=== PATIENT | female | born 1945 | race Caucasian/White ===

== ENCOUNTER → 2016-05-15 | Outpatient (CLI) | payer MEDICARE, OTHER | LOC: GMAJ 15:46 | PROVIDERS: ATTEND Family Medicine | DX: E03.9 Hypothyroidism, unspecified (principal) ==

== ENCOUNTER 2016-11-28 18:14 | Observation (INO) | payer MEDICARE, OTHER ==
--- NOTE | 2016-11-28 18:16 | HP ---
SUPERVISING PHYSICIAN: Alejandro Fitzpatrick MD CHIEF COMPLAINT: CHEST PAIN HISTORY OF PRESENT ILLNESS: Ms. Pelayo is a 71 year-old female patient that presented to the night clinic at [facility] and was seen by Dr. Fitzpatrick with complaints of chest pain. She has a history of a previous myocardial infarction in 2015 as well as being diabetic with hypertension and a previous pulmonary embolism again in 2014. 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 Dr. Fitzpatrick requested the patient be placed in observation overnight for continuation of workup to further rule out an ischemic cardiac event. She was placed in observation in stable condition. PAST MEDICAL HISTORY: 1. Seasonal allergies. 2. Asthma. 3. Type 2 diabetes. 4. Hypertension. 5. Hypothyroidism. 6. Myocardial infarction in 2014. 7. Pulmonary embolism in 2015 secondary to a shoulder fracture and cast. PAST SURGICAL HISTORY: 1. Tonsillectomy at age 24. 2. Bilateral tubal ligation in 1975. 3. Heart catheterization in 2014. CURRENT MEDICATIONS: 1. Gabapentin 300 mg. twice a day. 2. Lipitor 20 mg daily. 3. Victoza 60 mg at bedtime. 4. Metformin Extended Release 500 mg b.i.d. 5. Losartan potassium 100 mg qPM. 6. Synthroid 150 mcg qAM. 7. Glimepiride 4 mg twice a day. 8. Lasix 20 mg daily. 9. Plavix 75 mg daily. 10. Coreg 6.25 mg qPM. 11. Low-dose Aspirin 81 mg daily. 12. Pantoprazole 40 mg daily. ALLERGIES: CIPROFLOXACIN, BYETTA, RAMIPRIL, JANUVIA FAMILY HISTORY: Father secondary to lung cancer. Mother had history of hypertension. SOCIAL HISTORY: Patient lives in [place]. She is single, she has no children. 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 She has never smoked and has never drank alcohol. REVIEW OF SYSTEMS: CONSTITUTIONAL: Denies any fever, chills, fatigue, or weight loss. CARDIOVASCULAR: As noted in the history of present illness. RESPIRATORY; Denies any cough or dyspnea. GASTROINTESTINAL: Negative for any diarrhea, constipation, nausea or vomiting. GENITOURINARY: Denies any dysuria, hematuria or any other urinary symptoms. NEUROLOGICAL: Denies any neuro deficits. Notes she has had a mild headache since early in the afternoon which is actually starting to ease up on admission. PHYSICAL EXAMINATION: VITAL SIGNS: Temperature 97.9, pulse 64, blood pressure 136/84. Saturation 96 % on room air at rest with respirations of 20. Admission weight 101.8 kg. GENERAL: The patient appears to be well hydrated, well-nourished and in no acute distress at time of admission to the medical/surgical floor. She is alert and oriented x 3. HEENT: Tympanic membranes are clear bilaterally. Pharynx is pink and moist without any lesions. NECK: Supple, non-tender with full range of motion. No jugular venous distention noted. CHEST: Lungs clear to auscultation bilaterally without any rhonchi, rales, or wheezes. CARDIOVASCULAR: Regular rate and rhythm without appreciable murmurs, rubs, or gallops. ABDOMEN: Obese, soft, non-tender. Positive bowel sounds. EXTREMITIES: No cyanosis, clubbing, or edema. NEUROLOGIC: She is alert and oriented x 3 with no motor or sensory deficits noted. Her facial features were symmetrical. Extraocular movements were within normal limits. LABORATORY: CBC showed to be within normal limits. Coagulation studies showed a slightly elevated PT of 13. INR was 1.1 with PTT of 28.9, D-dimer less than 200. Chemistries showed a mild hypokalemia with a potassium of 3.5. BUN 14, creatinine 0.6, glucose 96, bilirubin was only slightly elevated at 1.3. Liver functions all showed to be within normal limits. Cardiac enzymes showed a normal CPK at 130 with normal troponin less than 0.02. BNP was 54.4, TSH 0.97. Urinalysis showed just a trace of blood on dipstick, otherwise within normal limits. RADIOLOGY: Chest x-ray single view on admission showed no acute pulmonary or parenchymal process seen in any field per radiology interpretation. ASSESSMENT: 1. Chest wall discomfort with a past history of myocardial infarction in 2015 needing to rule out acute ischemic event, possibly related to a mild anxiety attack. 2. History of hypertension. 3. History of previous myocardial infarction in 2015. 4. History of pulmonary embolism in 2015 on Plavix, having been on Eliquis prior and followed by Dr. Moon. 5. Type 2 diabetes mellitus. 6. Hypothyroidism on supplementation with normal TSH. 7. History of asthma. 8. Seasonal allergies. 9. Mild dehydration likely secondary to loop diuretics. 10. Mild electrolyte imbalance with a hypokalemia. PLAN: The patient is placed in observation tonight and started on cardiac protocol to rule out acute coronary event with cardiac labs every 6 hours with EKGs. She will be started on DVT prophylaxis as per protocol. Her home medications will be resumed as they are updated. Will anticipate length of stay to be 1 to 2 days with anticipation of discharge tomorrow should she show to be clinically stable and after reevaluation clinically, will repeat laboratory studies and followup on cardiac labs and EKGs. Once discharged, she will need close clinical followup with Dr. Anderson, her primary care physician, as well as followup with her bag valver, Dr. Moon. Will plan to start her on some IV fluids with potassium replacement to address the hypokalemia and mild dehydration. She will continue to be monitored and treated appropriately. #[id number] [facility]
[2016-11-28] MEDS ORDERED: DEXTROSE 50% 25 GM/50 ML SYG IV PRN (18:18)
[2016-11-28] MEDS ORDERED: ASPIRIN (CHEWABLE) 81 MG TAB PO ONE (18:18)
[2016-11-28] MEDS ORDERED: SODIUM CHLORIDE 0.9% (FLUSH) 10 ML SYG IV PRN (18:18)
[2016-11-28] MEDS ORDERED: MORPHINE SULFATE INJ 10 MG/ML VIAL IV PRN (18:18)
[2016-11-28] MEDS ORDERED: NITROGLYCERIN 0.4 MG 25 EA TAB SL PRN (18:18)
[2016-11-28] MEDS ORDERED: ACETAMINOPHEN 325 MG TAB PO PRN (18:18)
[2016-11-28] MEDS ORDERED: GLUCAGON INJ 1 MG VIAL SUBCU PRN (18:18)
[2016-11-28] MEDS ORDERED: IV SET AND CAP CHANGE INJ INJ SCH (18:30)
[2016-11-28] MEDS ORDERED: ASPIRIN TABLET 325 MG TAB ONE (18:52)
--- NOTE | 2016-11-28 18:57 | RAD ---
PROCEDURE: XR CHEST 1 VIEW HISTORY: chest pain COMPARISON: None TECHNIQUE: Single projection of the chest was done. FINDINGS: The lung landry are well inflated . There are no discrete airspace infiltrates, pneumothoraces or pleural effusions. The pulmonary vascularity is normal. The cardiomediastinal silhouette is unremarkable for patient's age and sex. IMPRESSION: There is no acute pleural-parenchymal process seen in the imaged lung landry. Location of Interpretation: Teleradiology Electronically signed by: Сергей Richardson MD 11/28/2016 6:56 PM CDT Workstation: [id number]
[2016-11-28] MEDS: SODIUM CHLORIDE 0.9% (FLUSH) 10 ML SYG IV SCH (20:16)
[2016-11-28] MEDS: KCL 20MEQ/0.45% NS 1,000 ML IVS PRN (20:16)
[2016-11-28] MEDS ORDERED: GLIMEPIRIDE 4 MG PO SCH (21:00)
[2016-11-28] MEDS ORDERED: LIRAGLUTIDE 6 MG SC SCH (21:00)
[2016-11-28] MEDS: INSULIN LISPRO 100 UNITS/ML PEN SUBCU SCH (21:23)
[2016-11-28] MEDS ORDERED: LOSARTAN POTASSIUM 100 MG PO SCH (22:00)
[2016-11-28] MEDS ORDERED: CARVEDILOL 3.125 MG TAB PO SCH (22:00)
[2016-11-28] MEDS ORDERED: NON-FORMULARY MEDICATION 1 EA MIS (Metformin Hcl [Metformin Hcl Er] 500 MG) PO SCH (22:00)
[2016-11-28] MEDS ORDERED: CLOPIDOGREL 75 MG TAB PO SCH (22:30)
[2016-11-28] MEDS ORDERED: metFORMIN XR 500 MG TAB.ER.24 PO ONE (22:40)
[2016-11-28] MEDS ORDERED: LOSARTAN POTASSIUM 100 MG TAB ONE (22:40)
[2016-11-28] MEDS ORDERED: GLIMEPIRIDE 2 MG TAB ONE (22:40)
[2016-11-29] MEDS: INSULIN LISPRO 100 UNITS/ML PEN SUBCU SCH (07:22)
[2016-11-29] MEDS ORDERED: GLIMEPIRIDE 2 MG TAB ONE (08:26)
[2016-11-29] MEDS ORDERED: metFORMIN HCL 500 MG TAB ONE (08:27)
[2016-11-29] MEDS ORDERED: FUROSEMIDE 40 MG TAB ONE (08:27)
[2016-11-29] MEDS ORDERED: LEVOTHYROXINE SODIUM 0.075 MG TAB ONE (08:27)
[2016-11-29] MEDS ORDERED: CLOPIDOGREL 75 MG TAB ONE (08:27)
[2016-11-29] MEDS: KCL 20MEQ/0.45% NS 1,000 ML IVS PRN (08:36)
[2016-11-29] MEDS: SODIUM CHLORIDE 0.9% (FLUSH) 10 ML SYG IV SCH (08:40)
[2016-11-29] MEDS ORDERED: ASPIRIN TABLET 325 MG TAB PO SCH (09:00)
[2016-11-29] MEDS ORDERED: LEVOTHYROXINE SODIUM 0.075 MG TAB PO SCH (09:00)
[2016-11-29] MEDS ORDERED: CLOPIDOGREL 75 MG TAB PO SCH (09:00)
[2016-11-29] MEDS ORDERED: metFORMIN XR 500 MG TAB.ER.24 PO SCH (09:00)
[2016-11-29] MEDS ORDERED: GLIMEPIRIDE 2 MG TAB PO SCH (09:00)
[2016-11-29] MEDS ORDERED: ATORVASTATIN 20 MG TAB PO SCH (09:00)
[2016-11-29] MEDS ORDERED: FUROSEMIDE 40 MG TAB PO SCH (09:00)
[2016-11-29] MEDS ORDERED: PANTOPRAZOLE SODIUM TAB 40 MG PO SCH (09:00)
[2016-11-29] MEDS ORDERED: ASPIRIN EC 81 MG TAB PO SCH (09:00)
[2016-11-29 09:51] VITALS: BP 147/80; TEMP 98.9; O2SAT 96
[2016-11-29] MEDS ORDERED: LOSARTAN POTASSIUM 100 MG TAB PO SCH (18:00)
--- NOTE | 2016-11-29 18:59 | DS ---
SUPERVISING PHYSICIAN: Alejandro Fitzpatrick M.D. DISCHARGE DIAGNOSIS: 1. Chest wall discomfort with no evidence of acute ischemic cardiac event with cardiac enzymes being negative and EKG unchanged likely secondary to acute anxiety event with symptoms having resolved prior to discharge without any additional intervention. 2. History of hypertension, stable. 3. History of previous myocardial infarction in 2015. 4. History of pulmonary embolism in 2015 on Plavix, having been on Eliquis a year prior and being followed by Dr. Moon. 5. Type 2 diabetes mellitus, stable. 6. Hypothyroidism on supplementation with normal TSH. 7. History of asthma. 8. Seasonal allergies. 9. Mild dehydration likely secondary to loop diuretics showing improvement after IV therapy. 10. Mild electrolyte imbalance with a hypokalemia secondary to Lasix, improved after IV therapy. HISTORY OF PRESENT ILLNESS: Ms. Pelayo is a 71 year-old female patient that presented initially on 11/28/16 to the after hours clinic at [facility] and was seen by Dr. Fitzpatrick. She was complaining of chest wall type pain more in the back radiating to her right side with some right arm discomfort. She does have a history of a previous myocardial infarction in 2014 as well as being diabetic with hypertension and a previous pulmonary embolism again in 2014. EKG in the clinic showed no acute changes, no ST or T-wave abnormalities , but given the patient's history and symptomatology, Dr. Fitzpatrick requested the patient be placed in Observation to further rule out any acute cardiac event. 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 Dr. Fitzpatrick requested the patient be placed in observation to further rule out an acute cardiac event. She had also noted that she had had a stressful day at work and had a minor argument with her petroleum inspector supervisor after which time she started having chest tightness that started in her back and radiated to her left and right side, and also developed a mild headache. She was placed in Observation in stable condition. LABORATORY: CBC on admission was within normal limits as well as discharge. White count was 7.5, hemoglobin 13.4, hematocrit 39.8, platelet count 174,000. Differential was within normal limits. Coagulation studies show just a slightly elevated PT of 13 with an INR of 1.15 with PTT of 28.9 and D-dimer less than 200. Chemistries on admission showed lot potassium 3.5, BUN 14, creatinine 0.62. Bilirubin was only slightly elevated at 1.3. Liver functions all showed to be within normal limits. BNP was normal at 54. Initial troponin was less than 0.02 and repeat times three remained less than 0.02. At discharge , her potassium had normalized. Total bilirubin had returned to near normal at 1.1. Blood sugars ranged from 126 to 135. Lipid panel showed cholesterol 65 with LDL 25 and HDL 27. TSH was normal at 0.97. Urinalysis showed just a trace of intact blood, otherwise within normal limits. RADIOLOGY: Chest x-ray on admission single view per radiology interpretation showed no acute pleural or parenchymal processes seen within the imaged lung landry. HOSPITAL COURSE: Ms. Pelayo was admitted from the walk-in clinic as noted in History of Present Illness on 11/28/16 to rule out acute ischemic cardiac event. When she was placed in Observation, she was essentially without any symptoms, just a mild headache. She was started on some IV fluids, telemetry and observed overnight with repeat cardiac enzymes. She had no recurrence of pain. He headache had improved. She had no pain in regards to symptoms as prior to admission. She had no recurrence of any chest pain nor did she have any abnormal rhythms noted on telemetry. It was felt that she was clinically stable enough to be discharge to have close clinical followup in the outpatient setting. PLAN: Ms. Pelayo was discharged on 11/29/16 to have close clinical followup with Dr. Anderson as scheduled on 12/12/16 at 10:45 AM. She can resume her home medications as prior to admission and return to the hospital should she have any concerning symptoms. She will need to have a followup with Dr. Moon, her assembler 1st shift, for a stress test in the near future. Diet at discharge was diabetic diet as tolerated. Activity is to increase as tolerated. Condition on discharge was stable. No new medications were added to her medication regimen. [facility][id number] [facility]
== END 2016-11-29 09:41 | disposition home or self-care (01) ==
LOC: MS 18:14
PROVIDERS: ADMIT Nurse Practitioner Family; ATTEND Nurse Practitioner Family
DX: R07.89 Other chest pain (principal); F41.9 Anxiety disorder, unspecified; I10 Essential (primary) hypertension; I25.2 Old myocardial infarction; E11.9 Type 2 diabetes mellitus without complications; E86.0 Dehydration; E87.6 Hypokalemia; E03.9 Hypothyroidism, unspecified; J45.909 Unspecified asthma, uncomplicated; Z86.711 Personal history of pulmonary embolism; Z79.02 Long term (current) use of antithrombotics/antiplatelets; Z79.84 Long term (current) use of oral hypoglycemic drugs; Z79.82 Long term (current) use of aspirin; Z79.899 Other long term (current) drug therapy; Z88.1 Allergy status to other antibiotic agents; Z88.8 Allergy status to other drugs, medicaments and biological substances; Z82.49 Family history of ischemic heart disease and other diseases of the circulatory system; Z80.1 Family history of malignant neoplasm of trachea, bronchus and lung
CPT/HCPCS: 36415 ×7; 36416 ×5; 71010; 80053 ×2; 80061; 81001; 82550 ×3; 82553 ×3; 82948 ×2; 83036; 83880; 84443; 84484 ×3; 85025 ×2; 85379; 85610; 85730; 93005 ×2; 94760 ×2; 96365; 96372; 96376; G0378; J3480 ×2

== ENCOUNTER → 2017-03-06 | Outpatient (CLI) | payer MEDICARE, OTHER ==
--- NOTE | 2017-03-07 15:37 | MAM ---
EXAM DESCRIPTION: 3D Screening BILATERAL : Digital Mammography. CLINICAL HISTORY: 71 years Female SCREENING . No complaints. No family history of breast cancer. Postmenopausal. Has taken HRT 5 or more years ago.. COMPARISON: 2-D digital screening bilateral study 02/26/2016. Report from prior examination also reviewed. TECHNIQUE: Bilateral CC and MLO projection full-field images, 3-D tomosynthesis digital mammographic technique. Also bilateral synthesized CC/ MLO full-field images. CAD not utilized. FINDINGS: The breast parenchymal density pattern is: Scattered areas of fibroglandular density. No skin thickening or nipple retraction bilateral solitary microcalcifications. No focal, stellate mass or density, focal asymmetry , and no suspicious microcalcifications bilaterally. Stable mammograms compared to prior study, taking into account differences in mammographic technique IMPRESSION: BI-RADS CATEGORY: 2 - BENIGN FINDINGS. FOLLOW UP: Routine digital bilateral screening, one year interval from February 2017. Written communication explaining the IMPRESSION and follow-up, will be mailed to the patient and referring health care provider. According to the [employer], yearly mammograms are recommended starting at age 40 and continuing as long as a woman is in good health. Any breast change noted on a breast self-exam should be reported promptly to the patient's healthcare provider. Breast MRI is recommended for women with an approximately 20-25% or greater lifetime risk of breast cancer, including women with a strong family history of breast or ovarian cancer and women who have been treated for Hodgkin's disease. A negative mammographic report should not delay tissue diagnosis in patients with significant clinical history or physical findings. Extremely dense breast tissue limits the sensitivity of digital mammography. Electronically signed by: Rosales Campuzano MD 03/07/2017 3:36 PM [employer]
== END | disposition home or self-care (01) ==
LOC: MAMMO 09:29
PROVIDERS: ATTEND Family Medicine
DX: Z12.31 Encounter for screening mammogram for malignant neoplasm of breast (principal)
CPT/HCPCS: 77063; G0202

== ENCOUNTER → 2017-03-31 | Outpatient (CLI) | payer MEDICARE, OTHER | END | disposition home or self-care (01) | LOC: GMAJ 15:27 | PROVIDERS: ATTEND Family Medicine | DX: E03.9 Hypothyroidism, unspecified (principal) ==

== ENCOUNTER 2017-04-17 19:28 | Emergency (ER) | payer MEDICARE, OTHER ==
[2017-04-17] MEDS ORDERED: NITROGLYCERIN 0.4 MG 25 EA TAB SL ONE (19:49)
[2017-04-17] MEDS ORDERED: SODIUM CHLORIDE 0.9% (FLUSH) 10 ML SYG IV PRN (19:49)
[2017-04-17] MEDS ORDERED: ASPIRIN TABLET 325 MG TAB PO ONE (19:49)
--- NOTE | 2017-04-17 20:22 | RAD ---
PROCEDURE: XR CHEST 1 VIEW HISTORY: chest discomfort COMPARISON: 11/28/2016 TECHNIQUE: Single projection of the chest was done. FINDINGS: The lung landry are well inflated . There are no discrete airspace infiltrates, pneumothoraces or pleural effusions. The pulmonary vascularity is normal. The cardiomediastinal silhouette is unremarkable for patient's age and sex. IMPRESSION: There is no acute pleural-parenchymal process seen in the imaged lung landry. 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
--- NOTE | 2017-04-17 21:21 | ED.PDOC ---
History of Present Illness - General Chief Complaint: Chest Pain/MT Stated Complaint: chest pain Time Seen by Provider: 04/17/17 21:17 Source: patient, RN notes reviewed, Vital Signs reviewed Exam Limitations: no limitations Additional Information: Pt reports she has been having pain x3 days. Pain was gone yesterday and started having pain again today this morning. Pt reports numbness and tingling felt in her neck, throughout her back and shoulders (mostly left sided). Pt has hx of MT 2-3 years ago and she wanted to be checked out for possibility of MT. - History of Present Illness Timing/Duration: getting worse - over past 3 days Severity: moderate Improving Factors: rest Worsening Factors: movement Associated Symptoms: denies symptoms Allergies/Adverse Reactions: Allergies Ciprofloxacin [From Cipro] Allergy (Verified 02/12/16 21:41) Exenatide [From Byetta] Allergy (Verified 02/09/15 02:52) Phenol [From Byetta] Allergy (Verified 02/09/15 02:52) Ramipril Allergy (Verified 02/09/15 02:52) Sitagliptin [From Januvia] Allergy (Verified 02/09/15 02:52) Home Medications: Ambulatory Orders Glimepiride 4 mg PO BID 12/15/13 Levothyroxine Sodium [Synthroid] 150 mcg PO QAM 12/15/13 Losartan Potassium 100 mg PO QPM 12/15/13 Metformin HCl [Metformin HCl ER] 500 mg PO BID 12/15/13 Aspirin [Aspirin Adult Low Dose] 81 mg PO DAILY 02/12/16 Calcium & Magnesium + Zin 334-134-5 mg DAILY 02/12/16 Carvedilol [Coreg] 6.25 mg PO QPM 02/12/16 Furosemide [Lasix] 20 mg PO QAM 02/12/16 Pantoprazole Sodium 40 mg PO QAM 02/12/16 Atorvastatin Calcium [Lipitor] 20 mg PO DAILY 11/28/16 Clopidogrel Bisulfate [Plavix] 75 mg PO DAILY 11/28/16 Gabapentin 300 mg PO BID 11/28/16 Liraglutide [Victoza] 6 mg SC BEDTIME 11/28/16 Review of Systems - Review of Systems Constitutional: States: no symptoms reported EENTM: States: no symptoms reported Respiratory: States: no symptoms reported Cardiology: States: see HPI Gastrointestinal/Abdominal: States: no symptoms reported Genitourinary: States: no symptoms reported Musculoskeletal: States: see HPI, back pain Skin: States: no symptoms reported Neurological: States: no symptoms reported Endocrine: States: no symptoms reported Hematologic/Lymphatic: States: no symptoms reported Past Medical History (General) - Patient Medical History Hx Seizures: No Hx Stroke: No Hx Asthma: Yes Hx of COPD: No Hx Cardiac Disorders: Yes - MT Hx Congestive Heart Failure: No Hx Pacemaker: No Hx Hypertension: Yes Hx Diabetes: Yes - Diet controlled Hx Renal Disease: No Hx MRSA: No Surgical History: tonsillectomy, other - Vaccination History Hx Tetanus, Diphtheria Vaccination: Yes Hx Influenza Vaccination: Yes Hx Pneumococcal Vaccination: Yes - *had a reaction - Social History Hx Tobacco Use: No Hx Alcohol Use: No Hx Substance Use: No Hx Physical Abuse: No Hx Emotional Abuse: No - Female History Patient : No Family Medical History - Family History Mother Family History: Unknown Living Status: Physical Exam - Physical Exam General Appearance: Alert, Comfortable, No apparent distress, Well Developed, Well Groomed, Well Hydrated, Well Nourished Eye Exam: bilateral normal Ears, Nose, Throat: hearing grossly normal, normal ENT inspection, normal pharynx Neck: non-tender, full range of motion, supple Respiratory: chest non-tender, lungs clear, normal breath sounds, no respiratory distress, no accessory muscle use Cardiovascular/Chest: normal peripheral pulses, regular rate, rhythm, no edema, no murmur Gastrointestinal/Abdominal: non tender, soft Back Exam: muscle spasm - Left upper back Extremity: normal range of motion - except some pain with movement of left upper extremity, normal inspection, normal capillary refill Neurologic: c developer II-XII nml as tested, no motor/sensory deficits, alert, normal mood/affect, oriented x 3 Skin Exam: normal color Lymphatic: no adenopathy Progress - Progress Progress: 04/18/17 02:01 Patient with normal cardiopulmonary work-up. Suspect symptoms are mostly MSK in origin given association with increased movement/activity. - Results/Orders Results/Orders: Chest X-Ray: FINDINGS: The lung landry are well inflated . There are no discrete airspace infiltrates, pneumothoraces or pleural effusions. The pulmonary vascularity is normal. The cardiomediastinal silhouette is unremarkable for patient's age and sex. IMPRESSION: There is no acute pleural- parenchymal process seen in the imaged lung landry. EKG: NSR 68 bpm, no S-T elevation 04/17/17 19:49 IV Care:Saline Lock per Protoc QSHIFT Telemetry .ONCE Sodium Chloride 0.9% (Flush) [Saline Flush Syringe] 10 ml IV PRN PRN Pulse Ox Stat 04/17/17 19:50 EKG Assessment ONCE Pulse Oximetry Assessment DAILY Laboratory Results - last 24 hr 04/17/17 19:55 WBC 9.7 RBC 4.99 Hgb 15.1 Hct 44.1 MCV 88.4 MCH 30.2 MCHC 34.2 RDW 13.6 Plt Count 207 MPV 10.0 Absolute Neuts (auto) 6.40 Absolute Lymphs (auto) 2.30 Absolute Monos (auto) 0.60 Absolute Eos (auto) 0.30 Absolute Basos (auto) 0.10 Neutrophils % 65.9 Lymphocytes % 24.1 Monocytes % 5.8 Eosinophils % 2.9 Basophils % 1.3 PT 11.9 INR 1.050 PTT (SP) 28.2 Sodium 138 Potassium 3.5 L Chloride 101 Carbon Dioxide 28 Anion Gap 12.5 BUN 14 Creatinine 0.45 L BUN/Creatinine Ratio 31.1 H Random Glucose 91 Serum Osmolality 275.7 Calcium 9.6 Magnesium 1.8 Creatine Kinase 150 H CK-MB (CK-2) 3.9 CK-MB (CK-2) % 2.60 Troponin I < 0.02 B-Natriuretic Peptide 83.6 04/17/17 04/17/17 19:49 19:51 Temperature 97.9 F Pulse Rate 66 69 Pulse Rate [ 66 left] Respiratory 18 Rate Blood Pressure 150/81 [left] O2 Sat by Pulse 97 Oximetry - EKG/XRAY/CT EKG: Sinus, no ST T wave changes Departure - Departure Clinical Impression: Back pain Qualifiers: Back pain location: thoracic back pain Chronicity: acute Back pain laterality: left Qualified Code(s): M54.6 - Pain in thoracic spine Time of Disposition: 21:30 Disposition: Discharge to Home or Self Care Condition: Fair Departure Forms: ED Discharge - Pt. Copy, Patient Portal Self Enrollment Instructions: Muscle Strain Referrals: Roque Anderson MD [Primary Care Provider] - 1-5 Days Home Medications: Ambulatory Orders Glimepiride 4 mg PO BID 12/15/13 Levothyroxine Sodium [Synthroid] 150 mcg PO QAM 12/15/13 Losartan Potassium 100 mg PO QPM 12/15/13 Metformin HCl [Metformin HCl ER] 500 mg PO BID 12/15/13 Aspirin [Aspirin Adult Low Dose] 81 mg PO DAILY 02/12/16 Calcium & Magnesium + Zin 334-134-5 mg DAILY 02/12/16 Carvedilol [Coreg] 6.25 mg PO QPM 02/12/16 Furosemide [Lasix] 20 mg PO QAM 02/12/16 Pantoprazole Sodium 40 mg PO QAM 02/12/16 Atorvastatin Calcium [Lipitor] 20 mg PO DAILY 11/28/16 Clopidogrel Bisulfate [Plavix] 75 mg PO DAILY 11/28/16 Gabapentin 300 mg PO BID 11/28/16 Liraglutide [Victoza] 6 mg SC BEDTIME 11/28/16 Additional Instructions: Use tylenol over the counter for pain as well as heat and massage. Return to ER if condition worsens. Follow-up with Primary Care Provider if symptoms persist in 3 to 5 days.
[2017-04-17 21:53] VITALS: BP 141/64; TEMP 98; O2SAT 95
== END 2017-04-17 21:53 | disposition home or self-care (01) ==
LOC: ER 19:28
DX: M54.6 Pain in thoracic spine (principal); I25.2 Old myocardial infarction; E11.9 Type 2 diabetes mellitus without complications; I10 Essential (primary) hypertension; J45.909 Unspecified asthma, uncomplicated; Z79.899 Other long term (current) drug therapy; Z79.82 Long term (current) use of aspirin; Z88.1 Allergy status to other antibiotic agents; Z88.8 Allergy status to other drugs, medicaments and biological substances

== ENCOUNTER 2017-04-26 09:31 | Emergency (ER) | payer MEDICARE, OTHER ==
--- NOTE | 2017-04-26 09:47 | ED.PDOC ---
History of Present Illness - General Chief Complaint: Upper Extremity Injury Stated Complaint: s/p fall Time Seen by Provider: 04/26/17 09:43 Source: patient, RN notes reviewed, Vital Signs reviewed Additional Information: s/p fall - tripped on a speed bump. Fell on outstretched hand landing on right knee and left arm. Pain to right knee and left arm. Able to bear weight. No gross deformity on exam. Pt in no visible distress at rest. c/o pain in left wrist up to left elbow-no bruising or swelling noted in left forearm or wrist-also pain in right kneecap-small abrasion noted below knee. - History of Present Illness Occurred: just prior to arrival Pain - Upper Extremity: moderate: Elbow, left, Forearm, left, Wrist, left Method of Injury: fell Improving Factors: immobilization Worsening Factors: movement Allergies/Adverse Reactions: Allergies Ciprofloxacin [From Cipro] Allergy (Verified 02/12/16 21:41) Exenatide [From Byetta] Allergy (Verified 02/09/15 02:52) Phenol [From Byetta] Allergy (Verified 02/09/15 02:52) Ramipril Allergy (Verified 02/09/15 02:52) Sitagliptin [From Januvia] Allergy (Verified 02/09/15 02:52) Home Medications: Ambulatory Orders Glimepiride 4 mg PO BID 12/15/13 Levothyroxine Sodium [Synthroid] 150 mcg PO QAM 12/15/13 Losartan Potassium 100 mg PO QPM 12/15/13 Metformin HCl [Metformin HCl ER] 500 mg PO BID 12/15/13 Aspirin [Aspirin Adult Low Dose] 81 mg PO DAILY 02/12/16 Carvedilol [Coreg] 6.25 mg PO BID 02/12/16 Furosemide [Lasix] 20 mg PO QAM 02/12/16 Pantoprazole Sodium 40 mg PO QAM 02/12/16 Atorvastatin Calcium [Lipitor] 10 mg PO DAILY 11/28/16 Gabapentin 300 mg PO BID 11/28/16 Liraglutide [Victoza] 6 mg SC BEDTIME 11/28/16 Acetamin W/Cod #3 Tab [Tylenol #3 Tab] 1 ea PO Q4-6H PRN #20 tab 04/26/17 Multiple Vitamins W/ Minerals [Multivitamin Adults] 1 tab PO DAILY 04/26/17 Review of Systems - Review of Systems Constitutional: States: no symptoms reported EENTM: States: no symptoms reported Respiratory: States: no symptoms reported Cardiology: States: no symptoms reported Gastrointestinal/Abdominal: States: no symptoms reported Genitourinary: States: no symptoms reported Musculoskeletal: States: see HPI - right knee and left arm pain Skin: States: no symptoms reported Neurological: States: no symptoms reported Endocrine: States: no symptoms reported Hematologic/Lymphatic: States: no symptoms reported Past Medical History (General) - Patient Medical History Hx Seizures: No Hx Stroke: No Hx Asthma: Yes Hx of COPD: No Hx Cardiac Disorders: Yes - [place] Hx Congestive Heart Failure: No Hx Pacemaker: No Hx Hypertension: Yes Hx Diabetes: Yes - Diet controlled Hx Renal Disease: No Hx MRSA: No - Vaccination History Hx Tetanus, Diphtheria Vaccination: Yes Hx Influenza Vaccination: Yes Hx Pneumococcal Vaccination: Yes - *had a reaction - Social History Hx Tobacco Use: No Hx Alcohol Use: No Hx Substance Use: No Hx Physical Abuse: No Hx Emotional Abuse: No - Female History Patient : No Family Medical History - Family History Mother Family History: Unknown Living Status: Physical Exam - Physical Exam General Appearance: No apparent distress - at rest, Obese Eyes, Ears, Nose, Throat Exam: PERRL/EOMI, normal ENT inspection, TMs normal, pharynx normal Neck: non-tender, full range of motion, supple, normal inspection Cardiovascular/Respiratory: normal peripheral pulses, no respiratory distress Abdominal Exam: non-tender Back Exam: normal inspection Shoulder Exam: normal inspection, non-tender, no evidence of injury, normal ROM Elbow/Forearm Exam: normal inspection - without obvious/gross deformity, bone tenderness, limited ROM - due to pain Wrist Exam: normal inspection, bone tenderness - on extensor aspect of wrist, limited ROM - due to pain Hand Exam: normal inspection, non-tender, no evidence of injury, normal ROM Neuro/Tendon: normal sensation, normal motor functions, normal tendon functions , responds to pain, no evidence tendon injury Mental Status: alert, oriented x 3 Skin Exam: normal color, warm/dry Progress - Progress Progress: 04/26/17 09:55 Right knee without gross deformity. Left arm without obvious gross deformity - no snuff box tenderness noted on exam. Left arm/elbow/wrist x-rays obtained. 04/26/17 10:40 X-ray results reviewed with patient. Plan is for posterior long-arm splint and sling of left upper extremity. 04/26/17 10:53 Splint placement assessed. Good distal blood flow. Normal Cap Refill. Normal movement of shoulder and fingers. Pt advised to unwrap Coban and rewrap loosely if too much pain/concern for excessive swelling or compression. - Results/Orders Results/Orders: X-Ray Reports - Left Elbow - TECHNIQUE: 3.0 Views of the left elbow joint were done. FINDINGS: There is a positive posterior fat pad sign and soft tissue swelling in the posterior aspect of the left elbow. There is cortical offset in the left radial head and the neck suspicious for proximal left radial fracture. The remainder of the bones of the left elbow are intact IMPRESSION: There is cortical offset in the left radial head and the neck suspicious for proximal left radial fracture. Left Humerus - COMPARISON: X-ray of the left elbow done on the same day. X-ray of the left humerus done on 12/14/2015 TECHNIQUE: 2.0 Views of the left humerus were done. FINDINGS: There is no evidence of acute fractures or dislocation involving the left humerus. There is an old healing fracture of the proximal to mid left humeral diaphysis. IMPRESSION: Negative for acute bony trauma involving the left humerus Left Wrist - COMPARISON: None. TECHNIQUE: 3.0 Views of the left wrist were done. FINDINGS: There is no evidence of acute fractures or dislocation involving the bones of the left wrist. There is no evidence of any periosteal reactions involving the evaluated bones of the wrist joint. There is no visualization of chondrocalcinosis in the region of the wrist joint. The wrist joint arches are well-maintained. There is no evidence of ulnar variance. There are no focal erosive bony changes. The joint spaces of the left wrist are relatively well-maintained. The bone mineralization is osteopenic The soft tissues are radiographically unremarkable. There is no visualization of any radiopaque foreign bodies. If the wrist pain persists, repeat films can be done in 7-10 days interval to rule out currently radiographically occult fractures. Alternatively an MRI of the wrist can be obtained to rule out any occult fractures or bone marrow edema. IMPRESSION: Negative for acute bony trauma involving the left wrist Departure - Departure Clinical Impression: Left arm pain Contusion of right knee Qualifiers: Encounter type: initial encounter Qualified Code(s): S80.01XA - Contusion of right knee, initial encounter Fracture of proximal end of left radius Qualifiers: Encounter type: initial encounter Fracture type: closed Fracture morphology: unspecified fracture morphology Qualified Code(s): S52.102A - Unspecified fracture of upper end of left radius, initial encounter for closed fracture Time of Disposition: 10:59 Disposition: Discharge to Home or Self Care Condition: Good Departure Forms: ED Discharge - Pt. Copy, Patient Portal Self Enrollment Instructions: Contusion, DI for Elbow Fracture Referrals: Roque Anderson MD [Primary Care Provider] - 1 Week Mann Madrid MD [Active Staff] - 1-5 Days Prescriptions: Acetamin W/Cod #3 Tab [Tylenol #3 Tab] 1 ea PO Q4-6H PRN #20 tab PRN Reason: Pain -- Moderate To Severe Home Medications: Ambulatory Orders Glimepiride 4 mg PO BID 12/15/13 Levothyroxine Sodium [Synthroid] 150 mcg PO QAM 12/15/13 Losartan Potassium 100 mg PO QPM 12/15/13 Metformin HCl [Metformin HCl ER] 500 mg PO BID 12/15/13 Aspirin [Aspirin Adult Low Dose] 81 mg PO DAILY 02/12/16 Carvedilol [Coreg] 6.25 mg PO BID 02/12/16 Furosemide [Lasix] 20 mg PO QAM 02/12/16 Pantoprazole Sodium 40 mg PO QAM 02/12/16 Atorvastatin Calcium [Lipitor] 10 mg PO DAILY 11/28/16 Gabapentin 300 mg PO BID 11/28/16 Liraglutide [Victoza] 6 mg SC BEDTIME 11/28/16 Acetamin W/Cod #3 Tab [Tylenol #3 Tab] 1 ea PO Q4-6H PRN #20 tab 04/26/17 Multiple Vitamins W/ Minerals [Multivitamin Adults] 1 tab PO DAILY 04/26/17 Additional Instructions: Use Ice (10 to 15 minutes) several times a day as well as medicine as prescribed for pain. Range of motion exercises of hand, wrist and shoulder should help prevent stiffness in those joint. Keep elbow immobilized until seen by Dr. Madrid. Follow-up with Orthopedics within 5 to 7 days or return to ER sooner if condition worsens.
[2017-04-26 09:48] VITALS: TEMP 98.5
--- NOTE | 2017-04-26 10:30 | RAD ---
PROCEDURE: Elbow,Left 3 Views CLINICAL HISTORY: s/p fall INDICATION: Same as above COMPARISON: None . TECHNIQUE: 3.0 Views of the left elbow joint were done. FINDINGS: There is a positive posterior fat pad sign and soft tissue swelling in the posterior aspect of the left elbow. There is cortical offset in the left radial head and the neck suspicious for proximal left radial fracture. The remainder of the bones of the left elbow are intact IMPRESSION: There is cortical offset in the left radial head and the neck suspicious for proximal left radial fracture. Place of interpretation: [id number]. Electronically signed by: Сергей Richardson MD 04/26/2017 10:28 AM [facility] Workstation: [id number]
--- NOTE | 2017-04-26 10:31 | RAD ---
PROCEDURE: Humerus,Left CLINICAL HISTORY: s/p fall INDICATION: Same as above COMPARISON: X-ray of the left elbow done on the same day. X-ray of the left humerus done on 12/14/2015 TECHNIQUE: 2.0 Views of the left humerus were done. FINDINGS: There is no evidence of acute fractures or dislocation involving the left humerus. There is an old healing fracture of the proximal to mid left humeral diaphysis. IMPRESSION: Negative for acute bony trauma involving the left humerus Place of interpretation: Teleradiology. Electronically signed by: Сергей Richardson MD 04/26/2017 10:29 AM [facility] Workstation: [id number]
--- NOTE | 2017-04-26 10:33 | RAD ---
PROCEDURE: Wrist,Left 3 Views CLINICAL HISTORY: s/p fall INDICATION: Same as above COMPARISON: None. TECHNIQUE: 3.0 Views of the left wrist were done. FINDINGS: There is no evidence of acute fractures or dislocation involving the bones of the left wrist. There is no evidence of any periosteal reactions involving the evaluated bones of the wrist joint. There is no visualization of chondrocalcinosis in the region of the wrist joint. The wrist joint arches are well-maintained. There is no evidence of ulnar variance. There are no focal erosive bony changes. The joint spaces of the left wrist are relatively well-maintained. The bone mineralization is osteopenic The soft tissues are radiographically unremarkable. There is no visualization of any radiopaque foreign bodies. If the wrist pain persists, repeat films can be done in 7-10 days interval to rule out currently radiographically occult fractures. Alternatively an MRI of the wrist can be obtained to rule out any occult fractures or bone marrow edema. IMPRESSION: Negative for acute bony trauma involving the left wrist Place of interpretation: [id number]. Electronically signed by: Сергей Richardson MD 04/26/2017 10:31 AM [facility] Workstation: [id number]
[2017-04-26] MEDS ORDERED: ACETAMINOPHEN W/COD #3 TAB 1 EA TAB PO ONE (11:07)
[2017-04-26 11:21] VITALS: BP 148/90; O2SAT 96
== END 2017-04-26 11:17 | disposition home or self-care (01) ==
LOC: ER 09:31
DX: S80.01XA Contusion of right knee, initial encounter (principal); S52.102A Unspecified fracture of upper end of left radius, initial encounter for closed fracture; I25.2 Old myocardial infarction; I10 Essential (primary) hypertension; E11.9 Type 2 diabetes mellitus without complications; W01.0XXA Fall on same level from slipping, tripping and stumbling without subsequent striking against object, initial encounter; Y92.9 Unspecified place or not applicable

== ENCOUNTER → 2017-05-01 | Outpatient (CLI) | payer MEDICARE, OTHER ==
--- NOTE | 2017-05-01 10:45 | RAD ---
EXAM DESCRIPTION: Elbow,Left 3 Views CLINICAL HISTORY: PAIN COMPARISON: 26 April 2017 TECHNIQUE: 3 views left FINDINGS: The exam reveals some deformity of the mid left humeral shaft from prior fracturing. No fracture is detected. No joint effusion is seen. IMPRESSION: No elbow injury is detected. The exam does reveal deformity of the proximal humerus from prior fracturing. Electronically signed by: Landry Osborn MD 05/01/2017 10:44 AM [facility]
--- NOTE | 2017-05-02 10:07 | RAD ---
EXAM DESCRIPTION: Wrist,Left 3 Views CLINICAL HISTORY: 71 years, Female, PAIN IN WRIST COMPARISON: April 26, 2017 TECHNIQUE: AP/ lateral/ oblique views of the left wrist. FINDINGS: Modest degenerative changes particularly at the base of the thumb at the carpal metacarpal articulation is present. The wrist appears intact without malalignment. No fracture or dislocation is seen. Scapholunate dissociation is not apparent and the carpal navicular appears intact. No abnormality of the distal radius or ulna noted. IMPRESSION: 1. Degenerative changes without acute fracture of the wrist with little change from April 26, 2017. Electronically signed by: Alejandro Qeusada MD 05/02/2017 10:06 AM [facility]
== END | disposition home or self-care (01) ==
LOC: RAD 08:11
PROVIDERS: ATTEND Orthopaedic Surgery
DX: M25.522 Pain in left elbow (principal); M25.532 Pain in left wrist

== ENCOUNTER → 2017-05-12 | Outpatient (CLI) | payer MEDICARE, OTHER ==
--- NOTE | 2017-05-12 10:32 | RAD ---
Left elbow 3 views INDICATION: Elbow pain status post fall previous concern for elbow fracture COMPARISON: May 01 and April 26 IMPRESSION: There is mild impaction through the head neck junction of the left proximal radius indicating a grossly nondisplaced fracture. Faint sclerosis along the fracture line. Prominent elbow fluid/hemarthrosis. No additional fracture is identified. No dislocation. No destructive process. Electronically signed by: Uzair Currie MD 05/12/2017 10:30 AM [facility]
== END | disposition home or self-care (01) ==
LOC: RAD 09:54
PROVIDERS: ATTEND Orthopaedic Surgery
DX: S52.125D Nondisplaced fracture of head of left radius, subsequent encounter for closed fracture with routine healing (principal)

== ENCOUNTER → 2017-06-02 | Outpatient (CLI) | payer MEDICARE, OTHER ==
--- NOTE | 2017-06-13 10:34 | RAD ---
EXAM DESCRIPTION: Elbow,Left 3 Views CLINICAL HISTORY: CLOSED FX OF THE HEAD OF RADIUS COMPARISON: 12 May 2017 TECHNIQUE: 3 views left FINDINGS: Minimal callus formation is observed the impacted radial head fracture. No joint effusion is seen. No further abnormalities detected. IMPRESSION: Healing radial head fracture. Electronically signed by: Landry Osborn MD 06/13/2017 10:33 AM [facility]
== END ==
LOC: RAD 07:48
PROVIDERS: ATTEND Orthopaedic Surgery
DX: S52.125D Nondisplaced fracture of head of left radius, subsequent encounter for closed fracture with routine healing (principal)

== ENCOUNTER 2017-07-02 19:02 | Emergency (ER) | payer MEDICARE, OTHER ==
--- NOTE | 2017-07-02 21:39 | ED.PDOC ---
History of Present Illness - General Chief Complaint: Abdominal Pain Stated Complaint: RLQ pain Time Seen by Provider: 07/02/17 21:32 Information Source: patient Exam Limitations: no limitations - History of Present Illness Initial Comments: Marisol Pelayo 71 y/o female stated that she had dull pulsating intermittent RLQ pain since yesterday becoming more frequent starting this afternoon.Denies nausea/vomiting ,hematuria/dysuria loss of appetite,diarrhea,constipation or machine pan greaser vaginal bleeding.Had normal colonoscopy and pap smears in the past. Abdominal Pain Onset Location: RLQ Pain Radiation: RLQ, back - right side Quality: dull, intermittent, waxing/waning Timing/Duration: 24 hours Improving Factors: nothing Worsening Factors: movement Associated Symptoms: denies symptoms, other - see hpi Review of Systems - Review of Systems Constitutional: States: no symptoms reported EENTM: States: no symptoms reported Respiratory: States: no symptoms reported Cardiology: States: no symptoms reported Gastrointestinal/Abdominal: States: see HPI Genitourinary: States: no symptoms reported Musculoskeletal: States: no symptoms reported Skin: States: no symptoms reported All other Systems: Reviewed and Negative, No Change from Baseline Past Medical History (General) - Patient Medical History Hx Seizures: No Hx Stroke: No Hx Dementia: No Hx Asthma: Yes Hx of COPD: No Hx Cardiac Disorders: Yes - [place] Hx Congestive Heart Failure: No Hx Pacemaker: No Hx Hypertension: Yes Hx Thyroid Disease: Yes Hx Diabetes: Yes - Diet controlled Hx Gastroesophageal Reflux: No Hx Renal Disease: No Hx Cancer: No Hx of HIV: No Hx Hepatitis C: No Hx MRSA: No Surgical History: tonsillectomy - Vaccination History Hx Tetanus, Diphtheria Vaccination: Yes Hx Influenza Vaccination: Yes Hx Pneumococcal Vaccination: Yes - *had a reaction - Social History Hx Tobacco Use: No Hx Alcohol Use: No Hx Substance Use: No Hx Depression: No Hx Physical Abuse: No Hx Emotional Abuse: No - Activities of Daily Living Patient Lives Alone: No - Female History Patient : No Family Medical History - Family History Mother Family History: Unknown Living Status: Hx Family Hypertension: Yes - family members Hx Cardiac Disease: Yes - family members Hx Family Diabetes: Yes - family members Physical Exam - Physical Exam General Appearance: Alert, Comfortable, No apparent distress Eyes, Ears, Nose, Throat Exam: normal ENT inspection Neck: non-tender, full range of motion, supple Respiratory: chest non-tender, lungs clear, normal breath sounds Cardiovascular/Chest: normal peripheral pulses, regular rate, rhythm, no murmur Peripheral Pulses: No deficit Gastrointestinal/Abdominal: normal bowel sounds, soft, tenderness - RLQ no peritoneal signs Extremity: normal inspection, no pedal edema, no calf tenderness Neurologic: alert, oriented x 3 Progress - Progress Progress: 07/02/17 22:18 Vital Signs - 8 hr 07/02/17 19:15 Temperature 98.2 F Pulse Rate [ 62 monitor] Respiratory 16 Rate Blood Pressure 153/83 [Left Arm] O2 Sat by Pulse 96 Oximetry 07/02/17 22:26 Patient requested muscle relaxant to try - Results/Orders Results/Orders: 07/02/17 19:35 IV Care:Saline Lock per Protoc QSHIFT 07/02/17 20:25 Hold Metformin x 48Hrs [id number] Laboratory Results - last 24 hr 07/02/17 07/02/17 07/02/17 19:35 19:35 19:47 WBC 9.4 RBC 5.04 Hgb 15.2 Hct 44.2 MCV 87.7 MCH 30.2 MCHC 34.4 RDW 13.6 Plt Count 183 MPV 10.3 Absolute Neuts (auto) 5.80 Absolute Lymphs (auto) 2.50 Absolute Monos (auto) 0.50 Absolute Eos (auto) 0.40 Absolute Basos (auto) 0.10 Neutrophils % 62.4 Lymphocytes % 27.0 Monocytes % 5.8 Eosinophils % 3.8 Basophils % 1.0 Sodium 137 Potassium 3.3 L Chloride 102 Carbon Dioxide 26 Anion Gap 12.3 BUN 19 H Creatinine 0.57 L BUN/Creatinine Ratio 33.3 H Random Glucose 79 Serum Osmolality 275.0 Calcium 9.7 Amylase 38 Lipase Urine Color Urine Appearance Urine pH Ur Specific [place] Urine Protein Urine Glucose (UA) Urine Ketones Urine Blood Urine Nitrite Urine Bilirubin Urine Urobilinogen Ur Leukocyte Esterase Urine RBC Urine WBC Ur Epithelial Cells Urine Bacteria 07/02/17 07/02/17 19:47 20:10 WBC RBC Hgb Hct MCV MCH MCHC RDW Plt Count MPV Absolute Neuts (auto) Absolute Lymphs (auto) Absolute Monos (auto) Absolute Eos (auto) Absolute Basos (auto) Neutrophils % Lymphocytes % Monocytes % Eosinophils % Basophils % Sodium Potassium Chloride Carbon Dioxide Anion Gap BUN Creatinine BUN/Creatinine Ratio Random Glucose Serum Osmolality Calcium Amylase Lipase 35 Urine Color Yellow Urine Appearance Clear Urine pH 5.5 Ur Specific [place] <= 1.005 Urine Protein Negative Urine Glucose (UA) Negative Urine Ketones Negative Urine Blood Negative Urine Nitrite Negative Urine Bilirubin Negative Urine Urobilinogen 0.2 Ur Leukocyte Esterase Negative Urine RBC 0 Urine WBC 0-1 Ur Epithelial Cells 0-1 Urine Bacteria Rare Departure - Departure Clinical Impression: Abdominal pain Qualifiers: Abdominal location: right lower quadrant Qualified Code(s): R10.31 - Right lower quadrant pain Time of Disposition: 22:28 Disposition: Discharge to Home or Self Care Condition: Good Departure Forms: ED Discharge - Pt. Copy, Patient Portal Self Enrollment Instructions: DI for Abdominal Pain-Adult Referrals: Roque Anderson MD [Primary Care Provider] - 1-2 Weeks Home Medications: Ambulatory Orders Glimepiride 4 mg PO BID 12/15/13 Levothyroxine Sodium [Synthroid] 150 mcg PO QAM 12/15/13 Losartan Potassium 100 mg PO QPM 12/15/13 Metformin HCl [Metformin HCl ER] 500 mg PO BID 12/15/13 Aspirin [Aspirin Adult Low Dose] 81 mg PO DAILY 02/12/16 Carvedilol [Coreg] 6.25 mg PO BID 02/12/16 Furosemide [Lasix] 20 mg PO QAM 02/12/16 Pantoprazole Sodium 40 mg PO QAM 02/12/16 Atorvastatin Calcium [Lipitor] 10 mg PO DAILY 11/28/16 Gabapentin 300 mg PO BID 11/28/16 Liraglutide [Victoza] 6 mg SC BEDTIME 11/28/16 Acetamin W/Cod #3 Tab [Tylenol #3 Tab] 1 ea PO Q4-6H PRN #20 tab 04/26/17 Multiple Vitamins W/ Minerals [Multivitamin Adults] 1 tab PO DAILY 04/26/17 Additional Instructions: Follow up with primary Md in am;Return to ER as needed
[2017-07-02] MEDS ORDERED: BACLOFEN 10 MG TAB PO ONE (22:26)
[2017-07-02 22:59] VITALS: BP 132/85; TEMP 97.9; O2SAT 94
== END 2017-07-02 22:59 | disposition home or self-care (01) ==
LOC: ER 19:02
DX: R10.31 Right lower quadrant pain (principal); I25.2 Old myocardial infarction; E11.9 Type 2 diabetes mellitus without complications; I10 Essential (primary) hypertension

== ENCOUNTER → 2017-07-03 | Outpatient (CLI) | payer MEDICARE, OTHER ==
--- NOTE | 2017-07-03 12:03 | CT ---
EXAM DESCRIPTION: Abdoment/Pelvis w/o Contrast CLINICAL HISTORY: 71 years Female, RIGHT LOWER QUADRANT ABDOMINAL PAIN COMPARISON: 01 April 2016 TECHNIQUE: Transaxial images were obtained without intravenous or oral contrast media. Sagittal and coronal reconstruction was performed.This exam was performed according to our departmental dose-optimization program, which includes automated exposure control, adjustment of the mA and/or kV according to patient size and/or use of iterative reconstruction technique. FINDINGS: The lung bases are clear. The liver and spleen are unremarkable. No biliary ductal dilatation is observed. The gallbladder is normal in appearance. No adrenal masses are detected. Calcific atherosclerotic changes observed in the abdominal aorta without evidence of aneurysmal dilatation. Imaging of the kidneys reveals no evidence of hydronephrosis mass cyst or calcification. The appendix is identified and is normal in appearance. The uterus and adnexa are unremarkable. No free fluid is observed. A small periumbilical hernia is observed containing fat. IMPRESSION: 1. Small periumbilical hernia containing fat. 2. The appendix is normal in appearance. Electronically signed by: Landry Osborn MD 07/03/2017 12:02 PM [facility]
== END ==
LOC: RAD 11:26
PROVIDERS: ATTEND Physician Assistant
DX: R10.31 Right lower quadrant pain (principal); K42.9 Umbilical hernia without obstruction or gangrene

== ENCOUNTER → 2017-07-24 | Outpatient (CLI) | payer MEDICARE, OTHER ==
--- NOTE | 2017-07-24 17:50 | RAD ---
EXAM DESCRIPTION: Elbow,Left 3 Views CLINICAL HISTORY: FRACTURE COMPARISON: Previous study June 02, 2017 TECHNIQUE: AP, Lateral, and Oblique FINDINGS: Three-view left elbow series shows no displacement of the distal humeral fat pads. There is no bone lesion. Slight sclerosis at the radial head neck junction is consistent with a healed or healing fracture There are no significant arthritic changes. There is no radiopaque foreign body. IMPRESSION: Healing left radial head/neck fracture. Electronically signed by: Kwabena Morrison MD 07/24/2017 5:48 PM CDT
== END ==
LOC: RAD 08:08
PROVIDERS: ATTEND Orthopaedic Surgery
DX: S52.125D Nondisplaced fracture of head of left radius, subsequent encounter for closed fracture with routine healing (principal)

== ENCOUNTER → 2017-08-20 | Outpatient (CLI) | payer MEDICARE, OTHER | LOC: GMAJ 14:16 | PROVIDERS: ATTEND Family Medicine | DX: E03.9 Hypothyroidism, unspecified (principal) ==

== ENCOUNTER 2017-09-01 05:35 | Day surgery (SDC) | payer MEDICARE, OTHER ==
[2017-09-01] MEDS ORDERED: PROPARACAINE 0.5% OPHTH SOL 15 ML BTTL ONE (06:10)
[2017-09-01] MEDS ORDERED: TROP 1%/CYCLOPEN 1%/PHENYL 2% DROPS ONE (06:10)
[2017-09-01] MEDS: TOBRAMYCIN SULF 0.3 % OPHT SOL 1 DROP RIGHT_EYE ONE ×2 (10:15→11:06)
[2017-09-01] MEDS ORDERED: MIDAZOLAM INJ 2 MG/2 ML VIAL ONE ×2 (10:35→10:52)
[2017-09-01] MEDS ORDERED: PROPARACAINE 0.5% OPHTH SOL 15 ML BTTL RIGHT_EYE ONE (10:40)
[2017-09-01] MEDS ORDERED: DEXAMETHASONE 0.1% OPHTH SOL 1 DROP RIGHT_EYE ONE ×2 (10:53→11:06)
[2017-09-01] MEDS ORDERED: BRIMONIDINE 0.2% OPHTH DROPS RIGHT_EYE ONE ×2 (10:53→11:06)
[2017-09-01] MEDS ORDERED: LIDOCAINE 1% PF 2 ML AMP INJ ONE (10:53)
[2017-09-01] MEDS ORDERED: TOBRAMYCIN SULF 0.3 % OPHT SOL 1 DROP RIGHT_EYE ONE (10:53)
[2017-09-01 16:23] VITALS: BP 125/71; TEMP 97.1; O2SAT 97
== END 2017-09-01 11:47 | disposition home or self-care (01) ==
LOC: AMB 05:35
PROVIDERS: ATTEND Ophthalmology
DX: H25.11 Age-related nuclear cataract, right eye (principal); E11.36 Type 2 diabetes mellitus with diabetic cataract; I10 Essential (primary) hypertension; I25.10 Atherosclerotic heart disease of native coronary artery without angina pectoris; K21.9 Gastro-esophageal reflux disease without esophagitis; E66.9 Obesity, unspecified; Z88.8 Allergy status to other drugs, medicaments and biological substances; I25.2 Old myocardial infarction; Z79.84 Long term (current) use of oral hypoglycemic drugs; Z79.02 Long term (current) use of antithrombotics/antiplatelets; Z79.82 Long term (current) use of aspirin; Z79.899 Other long term (current) drug therapy
CPT/HCPCS: 00142; 66984; J2250

== ENCOUNTER 2017-09-15 05:25 | Day surgery (SDC) | payer MEDICARE, OTHER ==
[2017-09-15] MEDS ORDERED: PROPARACAINE 0.5% OPHTH SOL 15 ML BTTL ONE (05:54)
[2017-09-15] MEDS ORDERED: TROP 1%/CYCLOPEN 1%/PHENYL 2% DROPS ONE (05:54)
[2017-09-15] MEDS ORDERED: MIDAZOLAM INJ 2 MG/2 ML VIAL ONE (11:46)
[2017-09-15] MEDS ORDERED: LIDOCAINE 1% PF 2 ML AMP INJ ONE (11:58)
[2017-09-15] MEDS ORDERED: DEXAMETHASONE 0.1% OPHTH SOL 1 DROP LEFT_EYE ONE ×2 (12:03→12:13)
[2017-09-15] MEDS ORDERED: TOBRAMYCIN SULF 0.3 % OPHT SOL 1 DROP LEFT_EYE ONE ×2 (12:03→12:13)
[2017-09-15] MEDS ORDERED: BRIMONIDINE 0.2% OPHTH DROPS LEFT_EYE ONE ×2 (12:03→12:13)
== END 2017-09-15 12:43 | disposition home or self-care (01) ==
LOC: AMB 05:25
PROVIDERS: ATTEND Ophthalmology
DX: H25.12 Age-related nuclear cataract, left eye (principal); I10 Essential (primary) hypertension; I25.10 Atherosclerotic heart disease of native coronary artery without angina pectoris; I25.2 Old myocardial infarction; E11.36 Type 2 diabetes mellitus with diabetic cataract; K21.9 Gastro-esophageal reflux disease without esophagitis; J45.909 Unspecified asthma, uncomplicated; G47.30 Sleep apnea, unspecified; Z79.84 Long term (current) use of oral hypoglycemic drugs; Z79.899 Other long term (current) drug therapy
CPT/HCPCS: 00142; 66984; J2250

== ENCOUNTER → 2018-04-01 | Outpatient (CLI) | payer MEDICARE, OTHER ==
--- NOTE | 2018-04-06 15:50 | MAM ---
EXAM DESCRIPTION: 3D Screening BILATERAL : Digital Mammography. CLINICAL HISTORY: 72 years Female ANNUAL SCREENING . No complaints. No personal or family history of breast cancer. No childbirth. Postmenopausal 16 years. HRT 5 or more years ago.. Lifetime risk of developing breast cancer (Tyrer-Cuzick model)(%): 6.1. COMPARISON: Bilateral screening digital breast tomosynthesis 03/06/2017. TECHNIQUE: Bilateral CC and MLO projection full-field images, digital tomosynthesis mammographic technique. Bilateral digital 2-D full-field MLO images. CAD not available for tomosynthesis or 2-D images. FINDINGS: The breast parenchymal density pattern is: Scattered areas of fibroglandular density. No skin thickening or nipple retraction. Bilateral solitary parenchymal microcalcifications. No new focal, stellate mass or density, focal asymmetry , and no suspicious microcalcifications bilaterally. Stable mammograms compared to prior study. IMPRESSION: Benign exam. BIRAD CATEGORY: 2 BENIGN FINDINGS. RECOMMENDATIONS: FOLLOW UP: Routine digital bilateral mammographic screening, one year interval from March 2018. Written communication explaining the IMPRESSION and follow-up, will be mailed to the patient and referring health care provider. According to the [employer], yearly mammograms are recommended starting at age 40 and continuing as long as a woman is in good health. Any breast change noted on a breast self-exam should be reported promptly to the patient's healthcare provider. Breast MRI is recommended for women with an approximately 20-25% or greater lifetime risk of breast cancer, including women with a strong family history of breast or ovarian cancer and women who have been treated for Hodgkin's disease. A negative mammographic report should not delay tissue diagnosis in patients with significant clinical history or physical findings. Extremely dense breast tissue limits the sensitivity of digital mammography. Electronically signed by: Rosales Campuzano MD 04/06/2018 3:49 PM [facility]
== END ==
LOC: MAMMO 08:00
PROVIDERS: ATTEND Family Medicine
DX: Z12.31 Encounter for screening mammogram for malignant neoplasm of breast (principal)

== ENCOUNTER → 2018-06-02 | Outpatient (CLI) | payer MEDICARE, OTHER | LOC: GMAJ 15:09 | PROVIDERS: ATTEND Family Medicine | DX: E03.9 Hypothyroidism, unspecified (principal) ==

== ENCOUNTER → 2018-10-06 | Outpatient (CLI) | payer MEDICARE, OTHER | LOC: GMAJ 10:24 | PROVIDERS: ATTEND Family Medicine | DX: E03.9 Hypothyroidism, unspecified (principal); E11.42 Type 2 diabetes mellitus with diabetic polyneuropathy; I10 Essential (primary) hypertension; E78.00 Pure hypercholesterolemia, unspecified ==

== ENCOUNTER → 2018-12-24 | Outpatient (CLI) | payer MEDICARE, OTHER ==
--- NOTE | 2018-12-24 09:39 | RAD ---
EXAM DESCRIPTION: Shoulder,Left 2 or More Views (accession [id number]), Elbow,Left 3 Views (accession [id number]), Humerus,Left (accession [id number]) CLINICAL HISTORY: ARM PAIN COMPARISON: Left elbow radiograph 07/24/2017. Left humerus radiograph 04/26/2017. TECHNIQUE: Four views of the left shoulder,. Two views of the left humerus, three views of the left elbow. FINDINGS: Images of the left shoulder, humerus, elbow demonstrate no acute displaced fracture or dislocation. Chronic/healed left proximal/mid humerus shaft fracture deformity, unchanged. Moderate osteoarthrosis with joint space narrowing, subchondral sclerosis and small marginal osteophyte formation affects the left acromioclavicular and glenohumeral joints. No shoulder dislocation. Prominent posterior humeral head osteophyte. Left elbow joint is intact without dislocation. Prior healed radius neck fracture. No significant elbow joint effusion. IMPRESSION: 1. No acute osseous abnormality involving the left shoulder, humerus, or elbow. 2. Moderate left acromioclavicular and glenohumeral joint osteoarthrosis. Electronically signed by: Michael Guadarrama DO 12/24/2018 9:38 AM CDT
--- NOTE | 2018-12-24 09:40 | RAD ---
EXAM DESCRIPTION: Shoulder,Left 2 or More Views (accession [id number]), Elbow,Left 3 Views (accession [id number]), Humerus,Left (accession [id number]) CLINICAL HISTORY: ARM PAIN COMPARISON: Left elbow radiograph 07/24/2017. Left humerus radiograph 04/26/2017. TECHNIQUE: Four views of the left shoulder,. Two views of the left humerus, three views of the left elbow. FINDINGS: Images of the left shoulder, humerus, elbow demonstrate no acute displaced fracture or dislocation. Chronic/healed left proximal/mid humerus shaft fracture deformity, unchanged. Moderate osteoarthrosis with joint space narrowing, subchondral sclerosis and small marginal osteophyte formation affects the left acromioclavicular and glenohumeral joints. No shoulder dislocation. Prominent posterior humeral head osteophyte. Left elbow joint is intact without dislocation. Prior healed radius neck fracture. No significant elbow joint effusion. IMPRESSION: 1. No acute osseous abnormality involving the left shoulder, humerus, or elbow. 2. Moderate left acromioclavicular and glenohumeral joint osteoarthrosis. Electronically signed by: Michael Guadarrama DO 12/24/2018 9:38 AM CDT
--- NOTE | 2018-12-24 09:40 | RAD ---
EXAM DESCRIPTION: Shoulder,Left 2 or More Views (accession [id number]), Elbow,Left 3 Views (accession [id number]), Humerus,Left (accession [id number]) CLINICAL HISTORY: ARM PAIN COMPARISON: Left elbow radiograph 07/24/2017. Left humerus radiograph 04/26/2017. TECHNIQUE: Four views of the left shoulder,. Two views of the left humerus, three views of the left elbow. FINDINGS: Images of the left shoulder, humerus, elbow demonstrate no acute displaced fracture or dislocation. Chronic/healed left proximal/mid humerus shaft fracture deformity, unchanged. Moderate osteoarthrosis with joint space narrowing, subchondral sclerosis and small marginal osteophyte formation affects the left acromioclavicular and glenohumeral joints. No shoulder dislocation. Prominent posterior humeral head osteophyte. Left elbow joint is intact without dislocation. Prior healed radius neck fracture. No significant elbow joint effusion. IMPRESSION: 1. No acute osseous abnormality involving the left shoulder, humerus, or elbow. 2. Moderate left acromioclavicular and glenohumeral joint osteoarthrosis. Electronically signed by: Michael Guadarrama DO 12/24/2018 9:38 AM CDT
== END ==
LOC: RAD 07:14
PROVIDERS: ATTEND Orthopaedic Surgery
DX: M19.012 Primary osteoarthritis, left shoulder (principal)

== ENCOUNTER → 2019-02-03 | Outpatient (CLI) | payer MEDICARE, OTHER | LOC: GMAJ 14:08 | PROVIDERS: ATTEND Family Medicine | DX: E03.8 Other specified hypothyroidism (principal); E78.00 Pure hypercholesterolemia, unspecified; E11.42 Type 2 diabetes mellitus with diabetic polyneuropathy; I10 Essential (primary) hypertension ==

== ENCOUNTER → 2019-03-10 | Outpatient (CLI) | payer MEDICARE, OTHER ==
--- NOTE | 2019-03-11 08:14 | US ---
US THYROID CLINICAL STATEMENT: NODULE. COMPARISON: None TECHNIQUE: Transcutaneous scanning, grayscale and Doppler modes. FINDINGS: Size right thyroid lobe: 2.6 x 1.3 x 1.0 cm Size left thyroid lobe: 4.1 x 2.7 x 2.0 cm Size isthmus: 0.23 cm Estimated total number of nodules greater than or equal to 1 cm: 1. Heterogeneous echoes especially on the left. No distinct cysts or large calcifications. Nodule 1: Size: 3.2 x 2.3 x 2.1 cm Location: Left Mid Composition: solid or almost completely solid: 2 points.W Minimal peripheral vascularity. Echogenicity: hypoechoic: 2 points Shape: wider than tall: 0 points Margins: ill-defined: 0 points Echogenic foci: macrocalcifications: 1 point ACR Total Points: 5; ACR TI-RADS risk category: TR4 - moderately suspicious nodule. Nodule 2: Size: 0.6 x 0.3 x 0.3 cm Location: Right Mid Composition: solid or almost completely solid: 2 points Echogenicity: hyperechoic: 1 point Shape: wider than tall: 0 points Margins: smooth: 0 points Echogenic foci: none: 0 points ACR Total Points: 3; ACR TI-RADS risk category: TR3 - mildly suspicious nodule. No dominant solid mass or distinct cyst in the surrounding soft tissues. IMPRESSION: 1. Nodule 1: ACR TI-RADS 2017 Category TR4. Recommend: Ultrasound-guided fine needle aspiration. Recommendations based upon [employer] Best Practice recommendations and ACR TI-RADS 2017 guidelines. Please see below*. 2. Nodule 2: ACR TI-RADS 2017 Category TR3. Recommend: No further follow-up. 3. Soft tissue around the thyroid gland is unremarkable. *ACR TI-RADS 2017 Recommendations for imaging follow-up of nodules: TR1: No FNA or follow up TR2: No FNA or follow up TR3: FNA if >/= 2.5 cm, follow up if 1.5 - 2.4 cm in 1, 3, and 5 years TR4: FNA if >/= 1.5 cm, follow up if 1.0 - 1.4 cm in 1, 2, 3, and 5 years TR5: FNA if >/= 1.0 cm, follow up if 0.5 - 0.9 cm every year for 5 years ACR TI-RADS recommends that no more than two nodules with the highest ACR TI-RADS total point should be biopsied and no more than four nodules should be followed. These recommendations do not apply to patients with increased risk for thyroid cancer or patients with symptomatic thyroid disease. Electronically signed by: Rosales Campuzano MD 03/11/2019 8:12 AM [facility]
== END ==
LOC: US 12:00
PROVIDERS: ATTEND Family Medicine
DX: E04.1 Nontoxic single thyroid nodule (principal)

== ENCOUNTER → 2019-05-06 | Outpatient (CLI) | payer MEDICARE, OTHER ==
--- NOTE | 2019-05-06 15:16 | US ---
Thyroid Biopsy, Image-Guided: Biopsy/Needle Guidance: Ultrasound CLINICAL INFORMATION: 73 years Female. Abnormal left thyroid nodule. TECHNIQUE: Procedure was explained to the patient with risks and benefits. The patient gave verbal and written consent. Sterile preparation draping. 1% xylocaine dermal anesthetic 9-1 mixture with sodium bicarbonate. Sterile ultrasound guidance. A total of 6 passes mid left thyroid nodule; 3 needle samplings with a separate 1.5 inch, 25-gauge needle per sample, and 3 aspirations, with a separate 1.5 inch, 25-gauge needle/10-cc syringe set, per aspiration. Each sample was placed on a separate slide and fixed in 95% alcohol container. Saccomanno fluid drawn into aspirate needle and rinse injected into Saccomanno container. Specimens to be sent for pathologic examination at remote facility. . Patient tolerated procedure well. Biopsy #: 1 Nodule reference number based on prior diagnostic ultrasound:1 Maximum size: 3.2 cm Location: left; mid ACR TI-RADS risk category: TR4 (4-6 points) Reason for biopsy: meets ACR TI-RADS criteria Complications: None. FINDINGS: Multiple images demonstrate the echogenic needle within the mass for samplings and aspirations. IMPRESSION: Successful ultrasound guided fine needle aspiration of left thyroid nodule. ACR TI-RADS Risk Category TR 4 Electronically signed by: Rosales Campuzano MD 05/06/2019 3:14 PM [facility]
--- NOTE | 2019-05-10 16:19 | MAM ---
EXAM DESCRIPTION: 3D Screening BILATERAL : Digital Mammography. CLINICAL HISTORY: 73 years Female ANNUAL SCREENING . No complaints. No personal or family history of breast cancer. Menarche age 13. No childbirth. Postmenopausal age unknown. HRT for 6 months are more years ago.. Lifetime risk of developing breast cancer (Tyrer-Cuzick model)(%): 5.9. COMPARISON: Bilateral screening digital breast tomosynthesis March 2018 and February 2017. Ultrasound-guided fine-needle aspiration and sampling of the thyroid gland on the same visit today. TECHNIQUE: Bilateral CC and MLO projection full-field images, digital tomosynthesis mammographic technique. Bilateral digital 2-D full-field MLO images. CAD not available for tomosynthesis or 2-D images. FINDINGS: The breast parenchymal density pattern is: Scattered areas of fibroglandular density. No skin thickening or nipple retraction. Bilateral solitary parenchymal microcalcifications. No new focal, stellate mass or density, focal asymmetry , and no suspicious microcalcifications bilaterally. Stable mammograms compared to prior study. IMPRESSION: Benign exam. BIRAD CATEGORY: 2 BENIGN FINDINGS. RECOMMENDATIONS: FOLLOW UP: Routine digital bilateral mammographic screening, one year interval from April 2019. Written communication explaining the IMPRESSION and follow-up, will be mailed to the patient and referring health care provider. According to the [employer], yearly mammograms are recommended starting at age 40 and continuing as long as a woman is in good health. Any breast change noted on a breast self-exam should be reported promptly to the patient's healthcare provider. Breast MRI is recommended for women with an approximately 20-25% or greater lifetime risk of breast cancer, including women with a strong family history of breast or ovarian cancer and women who have been treated for Hodgkin's disease. A negative mammographic report should not delay tissue diagnosis in patients with significant clinical history or physical findings. Extremely dense breast tissue limits the sensitivity of digital mammography. Electronically signed by: Rosales Campuzano MD 05/10/2019 4:17 PM CERTIFIED HEALTH EDUCATION SPECIALIST
== END ==
LOC: US 08:30
PROVIDERS: ATTEND Family Medicine
DX: Z12.31 Encounter for screening mammogram for malignant neoplasm of breast (principal); E04.1 Nontoxic single thyroid nodule

== ENCOUNTER → 2019-09-01 | Outpatient (CLI) | payer MEDICARE, OTHER | LOC: GMAJ 11:03 | PROVIDERS: ATTEND Family Medicine | DX: E03.9 Hypothyroidism, unspecified (principal); E11.42 Type 2 diabetes mellitus with diabetic polyneuropathy; I10 Essential (primary) hypertension ==

== ENCOUNTER 2019-11-16 13:42 | Emergency (ER) | payer MEDICARE, OTHER ==
[2019-11-16 14:03] VITALS: O2SAT 96
[2019-11-16] MEDS ORDERED: ASPIRIN (CHEWABLE) 81 MG TAB ONE (14:04)
[2019-11-16] MEDS ORDERED: SODIUM CHLORIDE 0.9% (FLUSH) 10 ML SYG IV PRN (14:04)
[2019-11-16] MEDS ORDERED: ASPIRIN (CHEWABLE) 81 MG TAB PO ONE (14:05)
--- NOTE | 2019-11-16 14:50 | RAD ---
EXAM DESCRIPTION: Chest,1 View CLINICAL HISTORY: chest pain FINDINGS/ IMPRESSION: Comparison 04/17/2017 Normal heart size. Mildly tortuous aorta. No edema, infiltrates or effusions Electronically signed by: Alejandro Ragsdale MD 11/16/2019 2:48 PM CDT
--- NOTE | 2019-11-16 17:40 | ED.PDOC ---
History of Present Illness - General Chief Complaint: Chest Pain/ND Stated Complaint: chest and back pain Time Seen by Provider: 11/16/19 15:26 Source: patient, RN notes reviewed, Vital Signs reviewed Exam Limitations: no limitations - History of Present Illness Initial Comments: Patient is a 74-year-old white female who presents with complaints of chest pain and back pain. The pain is sharp and stabbing in nature. Is not related to exertion. Does not worsen with exertion. Comes and goes for no known reason. With the chest pain she does not get associated diaphoresis, nausea or dyspnea. Pain is worse with movement of her left shoulder. The pain is not worsened with deep inspiration. Timing/Duration: intermittent Severity: moderate Location: central Activities at Onset: none Prior Chest Pain/Cardiac Workup: other - Patient had normal stress test approximately 8 months ago. Improving Factors: nothing Worsening Factors: nothing Nitro Today/Relief: no nitro taken today Aspirin Treatment Today: 81 mg x 4 Associated Symptoms: chest pain Allergies/Adverse Reactions: Allergies Ciprofloxacin [From Cipro] Allergy (Verified 11/16/19 13:56) Exenatide [From Byetta] Allergy (Verified 11/16/19 13:56) Phenol [From Byetta] Allergy (Verified 11/16/19 13:56) Ramipril Allergy (Verified 11/16/19 13:56) Sitagliptin [From Januvia] Allergy (Verified 11/16/19 13:56) Home Medications: Ambulatory Orders Glimepiride 4 mg PO BID 12/15/13 Levothyroxine Sodium [Synthroid] 150 mcg PO ACBK 12/15/13 Losartan Potassium 100 mg PO QPM 12/15/13 Metformin HCl [Metformin HCl ER] 500 mg PO BID 12/15/13 Aspirin [Aspirin Adult Low Dose] 81 mg PO DAILY 02/12/16 Carvedilol [Coreg] 6.25 mg PO BID 02/12/16 Pantoprazole Sodium 40 mg PO QAM 02/12/16 Atorvastatin Calcium [Lipitor] 10 mg PO DAILY 11/28/16 Gabapentin 300 mg PO BID 11/28/16 Liraglutide [Victoza] 6 mg SC BEDTIME 11/28/16 Multiple Vitamins W/ Minerals [Multivitamin Adults] 1 tab PO DAILY 04/26/17 Review of Systems - Review of Systems Constitutional: States: no symptoms reported, see HPI. Denies: chills, fever, malaise, weakness EENTM: States: no symptoms reported. Denies: eye pain, double vision, throat swelling Respiratory: States: no symptoms reported. Denies: cough, short of breath, stridor Cardiology: States: see HPI, chest pain. Denies: palpitations, syncope, other Gastrointestinal/Abdominal: States: see HPI. Denies: abdominal pain, diarrhea, nausea, vomiting Genitourinary: States: no symptoms reported Musculoskeletal: States: see HPI, back pain. Denies: joint swelling, muscle pain, neck pain Skin: States: no symptoms reported, see HPI. Denies: change in color, rash Neurological: States: no symptoms reported Endocrine: States: no symptoms reported Hematologic/Lymphatic: States: no symptoms reported All other Systems: No Change from Baseline Past Medical History (General) - Patient Medical History Hx Seizures: No Hx Stroke: No Hx Dementia: No Hx Asthma: No Hx of COPD: No Hx Cardiac Disorders: No Hx Congestive Heart Failure: No Hx Pacemaker: No Hx Hypertension: Yes Hx Thyroid Disease: Yes Hx Diabetes: No Hx Gastroesophageal Reflux: No Hx Renal Disease: No Hx Cancer: No Hx of HIV: No Hx Hepatitis C: No Hx MRSA: No Surgical History: appendectomy - Vaccination History Hx Tetanus, Diphtheria Vaccination: Yes Hx Influenza Vaccination: Yes Hx Pneumococcal Vaccination: Yes - Social History Hx Tobacco Use: No Hx Alcohol Use: No Hx Substance Use: No Hx Depression: No Hx Physical Abuse: No Hx Emotional Abuse: No - Female History Patient : No Family Medical History - Family History Mother Family History: Unknown Living Status: Hx Family Hypertension: Yes - family members Hx Cardiac Disease: Yes - family members Hx Family Diabetes: Yes - family members Physical Exam - Physical Exam General Appearance: Alert, Anxious, Well Developed, Well Groomed, Well Hydrated, Well Nourished Eyes, Ears, Nose, Throat Exam: PERRL/EOMI, normal ENT inspection, pharynx normal Neck: non-tender, full range of motion, supple, normal inspection Respiratory: chest non-tender, lungs clear, normal breath sounds, no respiratory distress, no accessory muscle use Cardiovascular/Chest: normal peripheral pulses, regular rate, rhythm, no edema, no gallop, no JVD, no murmur Peripheral Pulses: radial,right: 2+, radial,left: 2+ Gastrointestinal/Abdominal: normal bowel sounds, non tender, soft, no organomegaly, no pulsatile mass Extremity: normal range of motion, non-tender, normal inspection 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 11/16/19 17:46 With a heart score 4. Labs are unremarkable. EKG does not show acute ischemia. Chest x-ray is unremarkable. Delta troponin does not show an elevation. Patient is chest pain-free and has been for hours. 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 Admission was offered but she feels that with a normal stress test 8 months ago that admission is not needed. Plan on discharge home at this time. Patient knows to return to the ED for worsening chest pain. Viktor Priest M.D. #[id number] - Results/Orders Results/Orders: EXAM DESCRIPTION: Chest,1 View CLINICAL HISTORY: chest pain FINDINGS/ IMPRESSION: Comparison 04/17/2017 Normal heart size. Mildly tortuous aorta. No edema, infiltrates or effusions Electronically signed by: Alejandro Ragsdale MD 11/16/2019 2:48 PM EKG performed 16 November 2019 at 1346 hrs.: Sinus rhythm with first-degree AV block at 67 bpm, anterior infarct, age indeterminate, abnormal EKG. No comparison EKG available at this time. 11/16/19 14:04 Sodium Chloride 0.9% (Flush) [Saline Flush Syringe] 10 ml IV PRN PRN EKG Stat Pulse Ox Stat Laboratory Results - last 24 hr 11/16/19 11/16/19 13:50 15:35 WBC 7.9 RBC 5.20 Hgb 15.4 Hct 45.4 MCV 87.3 MCH 29.7 MCHC 34.0 RDW 13.5 Plt Count 199 MPV 9.8 Absolute Neuts (auto) 4.90 Absolute Lymphs (auto) 2.10 Absolute Monos (auto) 0.50 Absolute Eos (auto) 0.30 Absolute Basos (auto) 0.10 Neutrophils % 62.2 Lymphocytes % 26.8 Monocytes % 6.2 Eosinophils % 3.8 Basophils % 1.0 PT 10.1 INR 1.02 PTT (SP) 24.2 Sodium 137 Potassium 3.8 Chloride 100 L Carbon Dioxide 27 Anion Gap 13.8 BUN 17 Creatinine 0.55 L BUN/Creatinine Ratio 30.9 H Random Glucose 118 H Serum Osmolality 276.4 Calcium 9.7 Magnesium 1.8 Creatine Kinase 105 CK-MB (CK-2) 3.7 CK-MB (CK-2) % Not Reportable Troponin I 0.02 < 0.02 B-Natriuretic Peptide 80.1 Vital Signs 11/16/19 11/16/19 13:58 15:30 Temperature 97.8 F Pulse Rate [ 70 66 Right Radial] Respiratory 18 Rate Blood Pressure 189/78 [Right Arm] O2 Sat by Pulse 96 Oximetry - EKG/XRAY/CT CT Ordered: No CT Interpretation Call Back: No Departure - Departure Clinical Impression: Abnormal EKG Chest pain Qualifiers: Chest pain type: unspecified Qualified Code(s): R07.9 - Chest pain, unspecified Time of Disposition: 17:48 Disposition: Discharge to Home or Self Care Condition: Good Departure Forms: ED Discharge - Pt. Copy, Patient Portal Self Enrollment Diet: resume usual diet Activity: walking as tolerated Referrals: Roque Anderson MD [Primary Care Provider] - 1-5 Days Home Medications: Ambulatory Orders Glimepiride 4 mg PO BID 12/15/13 Levothyroxine Sodium [Synthroid] 150 mcg PO ACBK 12/15/13 Losartan Potassium 100 mg PO QPM 12/15/13 Metformin HCl [Metformin HCl ER] 500 mg PO BID 12/15/13 Aspirin [Aspirin Adult Low Dose] 81 mg PO DAILY 02/12/16 Carvedilol [Coreg] 6.25 mg PO BID 02/12/16 Pantoprazole Sodium 40 mg PO QAM 02/12/16 Atorvastatin Calcium [Lipitor] 10 mg PO DAILY 11/28/16 Gabapentin 300 mg PO BID 11/28/16 Liraglutide [Victoza] 6 mg SC BEDTIME 11/28/16 Multiple Vitamins W/ Minerals [Multivitamin Adults] 1 tab PO DAILY 04/26/17
[2019-11-16 18:04] VITALS: BP 139/75; TEMP 97.9
== END 2019-11-16 18:04 | disposition home or self-care (01) ==
LOC: ER 13:42
DX: R07.9 Chest pain, unspecified (principal); I44.0 Atrioventricular block, first degree; I10 Essential (primary) hypertension; R94.31 Abnormal electrocardiogram [ECG] [EKG]